=== PATIENT | female | born 1950 | race Caucasian/White ===

== ENCOUNTER 2021-05-30 08:43 | Day surgery (SDC) | payer OTHER ==
[2021-05-24 10:41] VITALS: BMI 27.0
[2021-05-30] MEDS ORDERED: OFLOXACIN 0.3% OPHTHALMIC SOLUTION 5 ML BOTTLE ONE (09:17)
[2021-05-30] MEDS ORDERED: TROPICAMIDE 1% OPHTH SOLN 15 ML BOTTLE ONE (09:17)
[2021-05-30] MEDS ORDERED: PHENYLEPHRINE 2.5% OPHTH SOLN 15 ML BOTTLE ONE (09:17)
[2021-05-30] MEDS ORDERED: CYCLOPENTOLATE HCL 1% OPHTH SOLN 2 ML BOTTLE ONE (09:17)
[2021-05-30] MEDS ORDERED: KETOROLAC TROMETHAMINE 0.5% EYE DROP 1 DROP DROPS ONE (09:17)
[2021-05-30] MEDS ORDERED: POVIDONE-IODINE 5% OPHTHALMIC PREP 30 ML SOLUTION ONE (09:45)
[2021-05-30] MEDS ORDERED: BACITRACIN/POLYMYXIN OPH OINT 3.5 GM TUBE ONE (09:45)
[2021-05-30] MEDS ORDERED: BETAXOLOL HCL 0.25% OPHTHALMIC 10 ML DROPSBTL ONE (09:45)
[2021-05-30] MEDS ORDERED: ACETYLCHOLINE 1:100 INTRA-OCUL 20 MG/2 ML KIT ONE (09:45)
[2021-05-30] MEDS ORDERED: TETRACAINE 0.5% OPHTH SOLN 2 ML BOTTLE ONE (09:45)
[2021-05-30] MEDS ORDERED: BSS (NA/CA/MG/K) BALANCED SALT SOLUTION OPHTH SOLN 15 ML BOTTLE ONE (09:45)
[2021-05-30] MEDS ORDERED: NEO/POLYMYX B SULF/DEXAMETH OPHTHALMIC 5ML BOTTLE ONE (09:45)
[2021-05-30] MEDS ORDERED: EPI-SHUGARCAINE (EPINEPHRINE 0.025% & LIDOCAINE-PF 0.75%) 4ML ONE (09:45)
[2021-05-30] MEDS: TROPICAMIDE 1% OPHTH SOLN 15 ML BOTTLE OS SCH ×3 (09:50→10:00)
[2021-05-30] MEDS: CYCLOPENTOLATE HCL 1% OPHTH SOLN 2 ML BOTTLE OS SCH ×3 (09:50→10:00)
[2021-05-30] MEDS: OFLOXACIN 0.3% OPHTHALMIC SOLUTION 5 ML BOTTLE OS SCH ×3 (09:50→10:00)
[2021-05-30] MEDS: PHENYLEPHRINE 2.5% OPHTH SOLN 15 ML BOTTLE OS SCH ×3 (09:50→10:00)
[2021-05-30] MEDS: KETOROLAC TROMETHAMINE 0.5% EYE DROP 1 DROP DROPS OS SCH ×3 (09:50→10:00)
[2021-05-30] MEDS ORDERED: MIDAZOLAM HCL 2 MG/2 ML SINGLE DOSE VIAL ONE (10:40)
[2021-05-30] MEDS ORDERED: ONDANSETRON 4 MG/2 ML VIAL ONE (10:53)
[2021-05-30] MEDS ORDERED: ACETAMINOPHEN 325 MG TABLET (FP) PO PRN (11:12)
[2021-05-30 11:46] VITALS: TEMP 97.9
[2021-05-30 14:50] VITALS: BP 171/83; PULSE 72
== END 2021-05-30 12:45 | disposition home or self-care (01) ==
LOC: FASU 08:43
PROVIDERS: ATTEND Ophthalmology
PROC: 08RK3JZ Replacement of Left Lens with Synthetic Substitute, Percutaneous Approach (ICD-10-PCS; principal; 2021-05-30 10:52)
DX: H25.12 Age-related nuclear cataract, left eye (principal)

== ENCOUNTER → 2021-06-27 | Day surgery (SDC) | payer OTHER ==
[2021-06-21 10:53] VITALS: BMI 27.0
[~2021-06-27] MED LIST: BACITRACIN/POLYMYXIN OPH OINT 3.5 GM TUBE ONE; BETAXOLOL HCL 0.25% OPHTHALMIC 10 ML DROPSBTL ONE; BSS (NA/CA/MG/K) BALANCED SALT SOLUTION OPHTH SOLN 15 ML BOTTLE ONE; CYCLOPENTOLATE HCL 1% OPHTH SOLN 2 ML BOTTLE ONE; EPI-SHUGARCAINE (EPINEPHRINE 0.025% & LIDOCAINE-PF 0.75%) 4ML ONE; KETOROLAC TROMETHAMINE 0.5% EYE DROP 1 DROP DROPS ONE; NEO/POLYMYX B SULF/DEXAMETH OPHTHALMIC 5ML BOTTLE ONE; OFLOXACIN 0.3% OPHTHALMIC SOLUTION 5 ML BOTTLE ONE; PHENYLEPHRINE 2.5% OPHTH SOLN 15 ML BOTTLE OD SCH; PHENYLEPHRINE 2.5% OPHTH SOLN 15 ML BOTTLE ONE; POVIDONE-IODINE 5% OPHTHALMIC PREP 30 ML SOLUTION ONE; TETRACAINE 0.5% OPHTH SOLN 2 ML BOTTLE ONE; TROPICAMIDE 1% OPHTH SOLN 15 ML BOTTLE ONE
[2021-06-27 10:34] VITALS: BP 217/99; PULSE 74; TEMP 97.7
[2021-06-27] MEDS: KETOROLAC TROMETHAMINE 0.5% EYE DROP 1 DROP DROPS OD SCH ×3 (10:45→10:55)
[2021-06-27] MEDS: CYCLOPENTOLATE HCL 1% OPHTH SOLN 2 ML BOTTLE OD SCH ×3 (10:45→10:55)
[2021-06-27] MEDS: OFLOXACIN 0.3% OPHTHALMIC SOLUTION 5 ML BOTTLE OD SCH ×3 (10:45→10:55)
[2021-06-27] MEDS: TROPICAMIDE 1% OPHTH SOLN 15 ML BOTTLE OD SCH ×3 (10:45→10:55)
== END | disposition home or self-care (01) ==
LOC: FASU 09:31
PROVIDERS: ATTEND Ophthalmology
PROC: 08RJ3JZ Replacement of Right Lens with Synthetic Substitute, Percutaneous Approach (ICD-10-PCS; principal; 2021-06-27)
DX: Z53.09 Procedure and treatment not carried out because of other contraindication (principal); H26.9 Unspecified cataract